=== PATIENT | male | born 1940 | race Caucasian/White ===

== ENCOUNTER 2017-02-05 19:07 | Emergency (ER) | payer MEDICARE, BC ==
[2017-02-05] MEDS ORDERED: METHYLPREDNISOLONE PF 125MG/VIAL IVP ONE (19:09)
--- NOTE | 2017-02-05 19:13 | Emergency Department Record ---
History of Present Illness - General Chief Complaint: Shortness of breath Stated Complaint: TROUBLE BREATHING Time Seen by Provider: 02/05/17 19:08 Source: Patient Mode of Arrival: Wheelchair Limitations: No limitations - History of Present Illness Initial Comments: 76 yo male with a significant past medical history of oxygen dependent COPD presents to ED with a CC of shortness of breath "since this afternoon". Patient denies fevers, chills, or productive cough symptoms. Family at the bedside reports that the patient "gets these episodes", however this episode is lasting longer than usual. Patient denies chest pain or pressure symptoms. MD Complaint: Shortness of breath Onset/Timin -: Hour(s) Severity: Moderate Consistency: Constant Improves With: Nothing Worsens With: Exertion Known History Of: COPD Associated Symptoms: Denies other symptoms Treatments Prior to Arrival: Bronchodilator - Related Data Home Oxygen Therapy: Yes Home Oxygen Amount: 3 Liters Previous Rx's Medication Instructions Recorded Inhaler, Assist Devices [Space 1 each MC DAILY #2 spacer 05/03/15 Chamber Plus] Albuterol Sulfate 0.083% [Neb] 3 ml NEB .EVERY 4-6 HOURS PRN #1 ml 07/05/15 Albuterol Sulfate 0.083% [Neb] 3 ml NEB .EVERY 4-6 HOURS PRN #30 02/05/17 vial Prednisone [Prednisone 20Mg] 20 mg PO TID #15 tab 02/05/17 Allergies Allergy/AdvReac Type Severity Reaction Status Date / Time lorazepam AdvReac Intermediate ALTERED Verified 05/02/15 05:30 MENTAL STATUS Review of Systems Constitutional: Denies: Chills, Fever, Malaise, Night sweats Eyes: Denies: Eye discharge, Eye pain ENT: Denies: Congestion, Ear pain, Epistaxis Respiratory: Reports: Dyspnea, Wheezes. Denies: Cough, Stridor Cardiovascular: Reports: Dyspnea on exertion. Denies: Chest pain, Edema, Palpitations Endocrine: Denies: Fatigue, Heat or cold intolerance Gastrointestinal: Denies: Abdominal pain, Nausea, Vomiting Genitourinary: Denies: Incontinence, Retention Musculoskeletal: Denies: Arthralgia, Back pain, Gout, Joint swelling Skin: Denies: Bruising, Change in color Neurological: Denies: Abnormal gait, Confusion, Headache, Seizure Psychiatric: Denies: Anxiety Hematological/Lymphatic: Denies: Anemia, Blood Clots Past Medical History - SOCIAL HISTORY Smoking Status: Current every day smoker - RESPIRATORY Hx Respiratory Disorders: Yes Hx of CPAP: Yes - CARDIOVASCULAR Hx Cardio Disorders: Yes Hx Heart Attack: No - NEURO Hx Neuro Disorders: No - GI Hx GI Disorders: Yes Hx Diverticulitis: Yes (colostomy) - Hx Genitourinary Disorders: Yes Hx Prostate Problems: Yes - ENDOCRINE Hx Endocrine Disorders: Yes Hx Thyroid Disease: Yes (benign nodules) - MUSCULOSKELETAL Hx Musculoskeletal Disorders: No - PSYCH Hx Psych Problems: No Hx Anxiety: Yes - HEMATOLOGY/ONCOLOGY Hx Hematology/Oncology Disorders: No Family Medical History Hx Alcohol Use: Father, Children Hx Depression: Children Hx Heart Disease: Father Hx HTN: Father, Mother, Children, Brother/Sister Physical Exam - General General Appearance: Alert, Oriented x3, Cooperative, Severe distress (Patient is sitting upright with obvious respiratory distress) Limitations: No limitations - Head Head exam: Atraumatic, Normocephalic, Normal inspection Head exam detail: negative: Abrasion, Contusion, Guillen's sign, General tenderness, Hematoma, Laceration - Eye Eye exam: Normal appearance. negative: Conjunctival injection, Periorbital swelling, Periorbital tenderness, Scleral icterus - ENT Ear exam: negative: Auricular hematoma, Auricular trauma Nasal Exam: negative: Active bleeding, Discharge, Dried blood, Foreign body Mouth exam: negative: Drooling, Laceration, Muffled voice, Tongue elevation - Neck Neck exam: Normal inspection. negative: Meningismus, Tenderness - Respiratory Respiratory exam: Decreased breath sounds, Respiratory distress. negative: Rhonchi, Stridor, Wheezes - Cardiovascular Cardiovascular Exam: Regular rate, Normal rhythm, Tachycardia - GI/Abdominal GI/Abdominal exam: Soft. negative: Rebound, Rigid, Tenderness - Rectal Rectal exam: Deferred - exam: Deferred - Extremities Extremities exam: negative: Calf tenderness, Pedal edema, Tenderness - Back Back exam: Denies: CVA tenderness (R), CVA tenderness (L) - Neurological Neurological exam: Alert, Oriented X3. negative: Motor sensory deficit - Psychiatric Psychiatric exam: Normal affect, Normal mood - Skin Skin exam: Normal color. negative: Abrasion Type of lesion: negative: abrasion Course - Reevaluation(s) Reevaluation #1: 02/05/17 19:13 1 hour continuous duoneb initiated currently, solumedrol ordered as well IV. Will monitor closely. Reevaluation #2: 02/05/17 19:35 EKG: NSR with PVCs, [address]-T wave changes III, AVF c/w J-point elevation NO CHANGE FROM 04/30/15 MDM: EKG being read as ACUTE MA, patient denies chest pain symptoms, and review of the EKG is not c/w STEMI. Will continue to monitor closely. Reevaluation #3: 02/05/17 19:47 Patient re-examined, BS improved, work of breathing improved, and the patient reports overall improvement. Will continue to monitor. Reevaluation #4: 02/05/17 19:56 CXR reviewed, appears hyper-inflated without an acute process. Labs reviewed, WBC 14.4, Hgb 12.4, CO2 40, BUN/Creatinine appear at baseline allowing for conversion. Reevaluation #5: 02/05/17 20:33 Patient reassessed, reports "I feel at about my baseline". I discussed observation for further evaluation, patient declined stating "I want to go home ". Will observe for about 30 more minutes and reassess. 02/05/17 20:56 Patient was reassessed, reports that he wants to go home at this time. Will discharge home on a burst of prednisone, instructed to return for any worsening of his symptoms immediately. Medical Decision Making - Lab Data Result diagrams: 02/05/17 19:09 02/05/17 19:09 Critical Care Time Critical Care Time: Yes Total Critical Care Time: 35 Critical Care Time: Severe difficulty in breathing, continuous albuterol administration, multiple reassessments. Disposition Disposition: Discharge Clinical Impression: COPD exacerbation Disposition: Home, Self-Care Condition: (2) Stable Instructions: COPD (Chronic Obstructive Pulmonary Disease) (ED) Additional Instructions: Return to ED if your symptoms worsen or if you have any concerns. Prednisone and Vistaril as directed. Follow-up with your family doctor in 3-5 days as directed. Prescriptions: Albuterol Sulfate 0.083% [Neb] 3 ml NEB .EVERY 4-6 HOURS PRN #30 vial PRN Reason: Difficulty In Breathing Prednisone [Prednisone 20Mg] 20 mg PO TID #15 tab Forms: Patient Portal Access Time of Disposition: 20:43 Quality - Quality Measures Quality Measures: N/A - Blood Pressure Screening Does Patient Have Any of the Following: No Blood Pressure Classification: Pre-Hypertensive BP Reading Systolic Measurement: 134 Diastolic Measurement: 85 Screening for High Blood Pressure: < Pre-Hypertensive BP, F/U Documented > [ [id number]] Pre-Hypertensive Follow-up Interventions: Referral to alternative/primary care provider.
[2017-02-05] MEDS ORDERED: ALBUTEROL SULFATE (0.083%) 2.5 MG/3 ML NEB INH SCH (19:15)
[2017-02-05 19:20] LABS: BASO % 0.3 % (0-6); EOS % 3.5 % (0-6); GRAN % 57.9 % (47-80); HEMATOCRIT 40.8 % (42.0-52.0); HEMOGLOBIN 12.4 gm/dl (14.0-18.0); LYMPH % 26.6 % (16-45); MEAN CELL VOLUME 93.4 fl (81-97); MEAN CORPUSCULAR HGB CONC 30.4 g/dl (32-36); MEAN PLATELET VOLUME 10.7 fl (7.4-10.4); MONO % 11.7 % (0-9); PLATELET COUNT 237 K/uL (130-400); RED BLOOD COUNT 4.37 M/uL (4.40-5.70); RED CELL DISTRIBUTION WIDTH 16.7 % (11.5-14.5); WHITE BLOOD COUNT W/O DIFF 14.4 K/uL (4.2-12.2)
[2017-02-05 19:21] LABS: MEAN CORPUSCULAR HEMOGLOBIN 28.3 pg (27-33)
[2017-02-05 19:43] LABS: ALB/GLOB RATIO 1.2 (1.1-1.8); ALBUMIN 4.1 g/dL (4.0-5.0); ALKALINE PHOSPHATASE 96 U/L (40-129); ALT/SGPT 20 U/L (<41); AST/SGOT 26 U/L (10.0-50.0); BLOOD UREA NITROGEN 62.8 mg/dL (17.4-49.2); CKMB 3.3 ng/mL (<6.73); CREATINE PHOSPHOKINASE 84 U/L (39-308); CREATININE 0.6 mg/dL (0.7-1.2); EST GLOMERULAR FILTRATION RATE > 60 mL/min; GLUCOSE,RANDOM 114 mg/dL (74-109); TOTAL PROTEIN 7.5 g/dL (6.6-8.7)
[2017-02-05 19:47] LABS: TROPONIN I < 0.30 ng/mL (0.00-0.300)
--- NOTE | 2017-02-06 11:38 | RADIOLOGY REPORT ---
EXAM: PORTABLE CHEST HISTORY: DIFFICULTY IN BREATHING, WORSE TODAY. HAD FEVER YESTERDAY. TECHNIQUE: A single AP portable view of the chest was obtained. Comparison: Two view chest 07/05/15. FINDINGS: Mild cardiomegaly. Mild pulmonary venous hypertension as well. The lungs appear somewhat hyperinflated and clinical correlation as to mild CHF superimposed on COPD is suggested. Calcification of the aorta. Probable skin fold right apical region with no definite pneumothorax identified. The tips of the lateral costophrenic angles are not entirely included on the study, but no definite pleural effusion is seen. Small nodule right lower lung also present previously consistent with a small calcified granuloma. IMPRESSION: 1. CARDIOMEGALY WITH PULMONARY VENOUS HYPERTENSION. 2. THE LUNGS APPEAR SOMEWHAT HYPERINFLATED SUGGESTING UNDERLYING COPD. 3. SMALL GRANULOMA ON THE RIGHT BEFORE. 4. FINDINGS SUGGEST MILD CHF SUPERIMPOSED ON COPD. FOLLOW-UP FILMS SUGGESTED. JOB NUMBER: [id number] MTDD
== END 2017-02-05 21:15 | disposition home or self-care (01) ==
LOC: ER 19:07
DX: J44.1 Chronic obstructive pulmonary disease with (acute) exacerbation (principal); F17.210 Nicotine dependence, cigarettes, uncomplicated; Z99.81 Dependence on supplemental oxygen
CPT/HCPCS: 71010; 80053; 82550; 82553; 84484; 85025; 93005; 93010; 94644; 96374; 99284; J2930